=== PATIENT | male | born 1950 | race Caucasian/White ===

== ENCOUNTER 2016-02-24 11:20 | Inpatient (IN) | payer MEDICAID ==
[2016-02-24 11:58] LABS: % BASOPHILS 0.9 % (0.0-2.0); % EOSINOPHILS 2.4 % (0.0-5.0); % LYMPHOCYTES 37.8 % (20.0-50.0); % MONOCYTES 12.4 % (2.0-10.0); % NEUTROPHILS 46.5 % (40.0-80.0); HEMATOCRIT 35.4 % (39.0-49.0); MEAN CELL VOLUME 97.4 fl (80-99); MEAN CORPUSCULAR HEMOGLOBIN 33.1 pg (26.0-30.0); MEAN CORPUSCULAR HGB CONC 33.9 pg (28.0-36.0); MEAN PLATELET VOLUME 8.4 fl; NEUTROPHILE ABSOLUTE 3.1 Th/cmm (1.8-8.0); PLATELET COUNT 284 Th/cmm (150-400); RED BLOOD COUNT 3.63 Mil/cmm (4.30-5.70); RED CELL DISTRIBUTION WIDTH 13.8 % (11.5-20.0); WHITE BLOOD COUNT 6.8 Th/cmm (4.8-10.8)
[2016-02-24 12:08] LABS: INR 1.14 (0.5-1.4); PROTHROMBIN TIME (TEST) 11.4 SECONDS (9.5-11.5)
[2016-02-24 12:13] LABS: ALKALINE PHOSPHATASE 204 U/L (34-104); ANION GAP 5.9 (7.0-16.0); BILIRUBIN,TOTAL 0.3 mg/dL (0.3-1.0); BUN - UREA NITROGEN 26 mg/dL (7-25); BUN/CREATININE RATIO 32.5; CALCIUM SERUM 10.6 mg/dL (8.6-10.3); CARBON DIOXIDE 30.7 mEq/L (21.0-31.0); CHLORIDE 108 mEq/L (98-107); CREATININE - SERUM 0.8 mg/dL (0.7-1.3); GLUCOSE 99 mg/dL (70-105); POTASSIUM SERUM 4.6 mEq/L (3.5-5.1); SGOT 41 U/L (13-39); SGPT/ALT 25 U/L (7-52); SODIUM SERUM 140 mEq/L (136-145)
--- NOTE | 2016-02-24 12:15 | Diagnostic Imaging Report ---
Portable chest x-ray HISTORY: Cough The heart size is normal. A faint linear density is noted near the left costophrenic angle unchanged from 09/06/2015 consistent with scarring. No acute processes are seen. No hilar or mediastinal abnormalities. IMPRESSION: 1. No acute abnormalities 2. Cardiomegaly
--- NOTE | 2016-02-24 12:36 | ED Physician Chart ---
Chief Complaint/HPI - Patient Information Date Seen:: 02/24/16 Time Seen:: 11:40 Chief Complaint:: G-TUBE NEEDS REPLACEMENT History of Present Illness:: THIS IS A CHRONICALLY ILL MALE PATIENT SENT [facility] BECAUSE OF G- TUBE DISPLACEMENT. HE IS CONFUSED AND DEMENTED ACTING OUT AT TIMES. HE IS HAS HYPOTHYROIDISM, COPD, SEIZURE DISORDER AND MENTAL DISEASE. Allergies:: Allergies Allergy/AdvReac Type Severity Reaction Status Date / Time chlorpromazine Allergy Verified 02/24/16 11:45 [From Thorazine] Vitals:: Vital Signs - 8 hr 02/24/16 11:20 Temp 97.7 F HR 104 RR 18 BP 111/79 O2 Sat % 94 Historian:: Medical Records Review:: Nurse's Note Reviewed, Transfer documents Reviewed Review of Systems - Review of Systems General/Constitutional: No fever, No chills, No weight loss, Weakness (THE PATIENT IS UNABLE TO GIVE A REVIEW OF SYSTEMS.), No diaphoresis, No edema, No loss of appetite Skin: No skin lesions, No rash, No bruising Head: No headache, No light-headedness Eyes: No loss of vision, No pain, No diplopia ENT: No earache, No nasal drainage, No sore throat, No tinnitus Neck: No neck pain, No swelling, No thyromegaly, No stiffness, No mass noted Cardio Vascular: No chest pain, No palpitations, No PND, No orthopnea, No edema Pulmonary: No SOB, No cough, No sputum, No wheezing GI: No nausea, No vomiting, No diarrhea, No pain, No melena, No hematochezia, No constipation, No hematemesis G/U: No dysuria, No frequency, No hematuria Musculoskeletal: No bone or joint pain, No back pain, No muscle pain Endocrine: No polyuria, No polydipsia Psychiatric: No prior psych history, No depression, No anxiety, No suicidal ideation Hematopoietic: No bruising, No lymphadenopathy Allergic/Immuno: No urticaria, No angioedema Neurological: No syncope, No focal symptoms, No weakness, No paresthesia, No headache, No seizure, No dizziness, No confusion, No vertigo Past Medical History - Past Medical History Obtainable: Yes Past Medical History: HTN, Asthma/COPD, CVA/TIA, Seizures, Thyroid disorder, Dementia Family History: None Social History: Non Smoker, No Alcohol, No Drug Use Surgical History: None Psychiatricy History: Dementia Medication: Reviewed Family Medical History - Family Member Mother History Unknown: Yes Father History Unknown: Yes Ethnicity: Unknown Living Status: Unknown Physical Exam - Physical Examination General/Constitutional: Awake, Well-developed, well-nourished, Alert, No distress, GCS 15, Non-toxic appearing, Ambulatory Head: Atraumatic Eyes: Lids, conjuctiva normal, PERRL, EOMI Skin: Nl inspection, No rash, No skin lesions, No ecchymosis, Well hydrated, No lymphadenopathy ENMT: External ears, nose nl, Nasal exam nl, Lips, teeth, gums nl Neck: Nontender, Full ROM w/o pain, No JVD, No nuchal rigidity, No bruit, No mass, No stridor Respiratory: Nl effort/Exclusion, Clear to Auscultation, No Wheeze/Rhonchi/Rales Cardio Vascular: RRR, No murmur, gallop, rubs, NL S1 S2 GI: No tenderness/rebounding/guarding, No organomegaly, No hernia, Normal BS's, Nondistended, No mass/bruits, No McBurney tenderness Other GI comments:: GK-TUBE IS OUT AND THE ABDOMEN IS SLIGHTLY DISTENDED : No CVA tenderness Extremities: No tenderness or effusion, Full ROM, normal strength in all extremities (THERE IS SIGNIFICANT MUSCLE WASTING OF ALL FOUR EXTREMITIES.), No edema, Normal digits & nails Neuro/Psych: DTR's symmetric, Normal sensory exam, Normal motor strength, Judgement/insight normal (POOR JUDGEMENT AND INSIGHT), Mood normal, Normal gait , No focal deficits Misc: normal gait, Normal back, No paraspinal tenderness Labs/Radiology/EKG Results - Lab Results Results: Laboratory Tests 02/24/16 02/24/16 02/24/16 11:49 11:49 11:49 WBC 6.8 RBC 3.63 L Hgb 12.0 L Hct 35.4 L MCV 97.4 MCH 33.1 H MCHC Differential 33.9 RDW 13.8 Plt Count 284 MPV 8.4 Neutrophils % 46.5 Lymphocytes % 37.8 Monocytes % 12.4 H Eosinophils % 2.4 Basophils % 0.9 PT 11.4 INR 1.14 PTT (Actin FS) Sodium 140 Potassium 4.6 Chloride 108 H Carbon Dioxide 30.7 Anion Gap 5.9 L BUN 26 H Creatinine 0.8 Est GFR ( Amer) > 60.0 Est GFR (Non-Af Amer) > 60.0 BUN/Creatinine Ratio 32.5 Glucose 99 Calcium 10.6 H Total Bilirubin 0.3 AST 41 H ALT 25 Alkaline Phosphatase 204 H Troponin I Total Protein 8.2 Albumin 4.0 L Globulin 4.2 Albumin/Globulin Ratio 1.0 02/24/16 02/24/16 11:49 11:49 WBC RBC Hgb Hct MCV MCH MCHC Differential RDW Plt Count MPV Neutrophils % Lymphocytes % Monocytes % Eosinophils % Basophils % PT INR PTT (Actin FS) 26.7 Sodium Potassium Chloride Carbon Dioxide Anion Gap BUN Creatinine Est GFR ( Amer) Est GFR (Non-Af Amer) BUN/Creatinine Ratio Glucose Calcium Total Bilirubin AST ALT Alkaline Phosphatase Troponin I 0.01 Total Protein Albumin Globulin Albumin/Globulin Ratio ED Septic Shock - . Is Septic Shock (SBP<90, OR Lactate>4 mmol\L) present?: No - <6hrs of presentation: Vital Signs: Vital Signs - 8 hr 02/24/16 11:20 Temp 97.7 F HR 104 RR 18 BP 111/79 O2 Sat % 94 Reassessment (Disposition) - Reassessment Reassessment Condition:: Unchanged - Diagnosis Diagnosis:: G-TUBE DISPLACEMENT ANEMIA SEIZURES - Patient Disposition Discharge/Transfer:: Acute Care w/in this hosp Admitting Medical Physician:: Don Jimenes Condition at Disposition:: Unchanged
[2016-02-24] MEDS ORDERED: Albuterol Nebulizer 2.5mg/3mL HHN PRN (14:35)
[2016-02-24] MEDS ORDERED: LEVALBUTEROL HCL IH SCH (14:45)
[2016-02-24] MEDS ORDERED: Albuterol Nebulizer 2.5mg/3mL HHN SCH (18:30)
--- NOTE | 2016-02-24 21:54 | History & Physical ---
CHIEF COMPLAINT: Malfunctioning G-tube, not able to get his medication, dehydrated. HISTORY OF PRESENT ILLNESS: This is a 66-year-old male with history of diabetes, hypertension, schizoaffective disorder and dementia, who was admitted and treated in the Emergency Room for further management. The patient ____. PAST MEDICAL HISTORY: As mentioned in the history of present illness. PAST SURGICAL HISTORY: G-tube. ALLERGIES: CHLORPROMAZINE. MEDICATIONS: Depakote, Tylenol, vitamin C, gemfibrozil, Synthroid, lorazepam and Dilantin. FAMILY HISTORY: Noncontributory. SOCIAL HISTORY: The patient lives in group home. The patient is requiring 24-hour total care. REVIEW OF SYSTEMS: This is limited secondary to the patient's current mental status. We will try to obtain more detailed review of systems at a later date by talking to family members. Lucia Manley is the durable power of transportation superintendent, # [phone]. We will also try to get information from the nursing staff at the [facility], # [phone]. PHYSICAL EXAMINATION: VITAL SIGNS: Blood pressure 111/79, respirations 18, pulse 104, temperature ____. GENERAL: Elderly male, appears chronically ill. NECK: Supple. LUNGS: Good breath sounds, few rhonchi. HEART: Regular rate and rhythm without appreciable murmurs. ABDOMEN: Soft and nontender. EXTREMITIES: Positive excoriation, contractures and atrophy. NEUROLOGIC: Limited. LABORATORY DATA: WBC 6.8, hemoglobin 12.0, platelets 284. Sodium 140, potassium 4.6, BUN 26, creatinine 0.8, blood sugar is 99. Calcium ____. ASSESSMENT AND PLAN: Malfunctioning gastrostomy tube, dehydration, anemia, schizoaffective disorder, diabetes, hypertension, ____, chronic obstructive pulmonary disease, hypothyroidism. We will continue the patient on IV hydration, refer the patient to GI. I will put the patient on aspiration precaution. We will adjust the patient's medication. We will continue to monitor the patient closely. JOB# [id number]
[2016-02-24] MEDS: D5-0.45NS 1,000 ML IV SCH (23:41)
[2016-02-25 07:29] LABS: HEMATOCRIT 35.1 % (39.0-49.0); HEMOGLOBIN 11.8 gm/dL (13.2-17.3); MEAN CELL VOLUME 96.1 fl (80-99); MEAN CORPUSCULAR HEMOGLOBIN 32.3 pg (26.0-30.0); MEAN CORPUSCULAR HGB CONC 33.6 pg (28.0-36.0); MEAN PLATELET VOLUME 8.6 fl; PLATELET COUNT 282 Th/cmm (150-400); RED BLOOD COUNT 3.65 Mil/cmm (4.30-5.70); WHITE BLOOD COUNT 6.9 Th/cmm (4.8-10.8)
[2016-02-25 08:36] LABS: NEUTROPHILS 47 % (40-80); TOTAL CELLS COUNTED 100
[2016-02-25 08:37] LABS: PLATELET ESTIMATE ADEQUATE (NORMAL); PLATELET MORPHOLOGY NORMAL (NORMAL)
[2016-02-25] MEDS: Levothyroxine 0.15 Mg Tab GT SCH (09:51)
[2016-02-25] MEDS: Multivitamin 5 mL UDC GT SCH (09:51)
[2016-02-25] MEDS: Pantoprazole 40 mg/Packet GT SCH (09:51)
--- NOTE | 2016-02-25 12:56 | Internal Medicine Prog Note ---
Internal Medicine Subjective - Subjective Service Date: 02/25/16 Patient seen and examined:: with staff Patient is:: awake Patient Complaints of:: congestion Per staff patient is:: no adverse event Internal Medicine Objective - Results Result Diagrams: 02/25/16 06:36 02/24/16 11:49 Recent Labs: Laboratory Last Values WBC 6.9 Th/cmm (4.8-10.8) 02/25/16 06:36 RBC 3.65 Mil/cmm (4.30-5.70) L 02/25/16 06:36 Hgb 11.8 gm/dL (13.2-17.3) L 02/25/16 06:36 Hct 35.1 % (39.0-49.0) L 02/25/16 06:36 MCV 96.1 fl (80-99) 02/25/16 06:36 MCH 32.3 pg (26.0-30.0) H 02/25/16 06:36 MCHC Differential 33.6 pg (28.0-36.0) 02/25/16 06:36 RDW 14.0 % (11.5-20.0) 02/25/16 06:36 Plt Count 282 Th/cmm (150-400) 02/25/16 06:36 MPV 8.6 fl 02/25/16 06:36 Neutrophils % 46.5 % (40.0-80.0) 02/24/16 11:49 Lymphocytes % 37.8 % (20.0-50.0) 02/24/16 11:49 Monocytes % 12.4 % (2.0-10.0) H 02/24/16 11:49 Eosinophils % 2.4 % (0.0-5.0) 02/24/16 11:49 Basophils % 0.9 % (0.0-2.0) 02/24/16 11:49 Neutrophils (Manual) 47 % (40-80) 02/25/16 06:36 Lymphocytes 39 % (20-50) 02/25/16 06:36 Monocytes 11 % (2-10) H 02/25/16 06:36 Eosinophils Not Reportable 02/25/16 06:36 Atypical Lymphocytes 3 % 02/25/16 06:36 Platelet Estimate ADEQUATE (NORMAL) 02/25/16 06:36 Platelet Morphology NORMAL (NORMAL) 02/25/16 06:36 RBC Morph Micro Appear NORMAL (NORMAL) 02/25/16 06:36 PT 11.4 SECONDS (9.5-11.5) 02/24/16 11:49 INR 1.14 (0.5-1.4) 02/24/16 11:49 PTT (Actin FS) 26.7 SECONDS (26.0-38.0) 02/24/16 11:49 Sodium 140 mEq/L (136-145) 02/24/16 11:49 Potassium 4.6 mEq/L (3.5-5.1) 02/24/16 11:49 Chloride 108 mEq/L (98-107) H 02/24/16 11:49 Carbon Dioxide 30.7 mEq/L (21.0-31.0) 02/24/16 11:49 Anion Gap 5.9 (7.0-16.0) L 02/24/16 11:49 BUN 26 mg/dL (7-25) H 02/24/16 11:49 Creatinine 0.8 mg/dL (0.7-1.3) 02/24/16 11:49 Est GFR ( Amer) > 60.0 ml/min 02/24/16 11:49 Est GFR (Non-Af Amer) > 60.0 ml/min 02/24/16 11:49 BUN/Creatinine Ratio 32.5 02/24/16 11:49 Glucose 99 mg/dL (70-105) 02/24/16 11:49 Calcium 10.6 mg/dL (8.6-10.3) H 02/24/16 11:49 Total Bilirubin 0.3 mg/dL (0.3-1.0) 02/24/16 11:49 AST 41 U/L (13-39) H 02/24/16 11:49 ALT 25 U/L (7-52) 02/24/16 11:49 Alkaline Phosphatase 204 U/L (34-104) H 02/24/16 11:49 Ammonia 58 umol/L (16-53) H 02/25/16 06:36 Troponin I 0.01 ng/mL (0.01-0.05) 02/24/16 11:49 Total Protein 8.2 gm/dL (6.0-8.3) 02/24/16 11:49 Albumin 4.0 gm/dL (4.2-5.5) L 02/24/16 11:49 Globulin 4.2 gm/dL 02/24/16 11:49 Albumin/Globulin Ratio 1.0 (1.0-1.8) 02/24/16 11:49 - Physical Exam Vitals and I&O: Vital Signs Temp 98.4 F 02/25/16 08:00 Pulse 84 02/25/16 08:00 Resp 18 02/25/16 08:00 BP 130/90 02/25/16 08:00 Pulse Ox 94 02/25/16 08:00 Intake & Output 02/24/16 02/25/16 02/25/16 18:59 06:59 18:59 Intake Total 0 Balance 0 Intake: Oral 0 Tube Feeding 0 Other: Stool Characteristics Soft Active Medications: Current Medications Acetaminophen (Tylenol 650mg/20.3ml Suspension) 650 mg GT Q4HR PRN PRN Reason: Pain Or Fever >100.4 Stop: 04/24/16 14:34 Albuterol Sulfate (Albuterol 2.5mg/3ml Neb Ud) 2.5 mg HHN Q2H PRN PRN Reason: sob Stop: 04/24/16 14:34 Albuterol Sulfate (Albuterol 2.5mg/3ml Neb Ud) 2.5 mg HHN Q12H CARLY Stop: 04/24/16 18:29 Ascorbic Acid (Vitamin C) 500 mg GT DAILY [facility] Stop: 04/25/16 08:59 Last Admin: 02/25/16 09:51 Dose: Not Given Gemfibrozil (Lopid) 600 mg GT BID CARLY Stop: 04/24/16 16:59 Last Admin: 02/25/16 09:51 Dose: Not Given Dextrose/Sodium Chloride (D5-0.45ns) 1,000 mls @ 100 mls/hr IV .Q10H CARLY Stop: 04/24/16 14:44 Last Admin: 02/24/16 23:41 Dose: Not Given Levothyroxine Sodium (Synthroid) 0.15 mg GT DAILY [facility] Stop: 04/25/16 08:59 Last Admin: 02/25/16 09:51 Dose: Not Given Multivitamins/Vitamin C (Theragran) 5 ml GT DAILY [facility] Stop: 04/25/16 08:59 Last Admin: 02/25/16 09:51 Dose: Not Given Ondansetron HCl (Zofran) 4 mg IVP Q8H PRN PRN Reason: Nausea / Vomiting Stop: 04/24/16 14:34 Pantoprazole Sodium (Protonix) 40 mg GT DAILY [facility] Stop: 04/25/16 08:59 Last Admin: 02/25/16 09:51 Dose: Not Given Phenytoin (Dilantin) 300 mg GT Q12H [facility] Stop: 04/24/16 15:59 Last Admin: 02/25/16 05:27 Dose: Not Given Valproate Sodium (Depakene) 300 mg GT TID [facility] Stop: 04/24/16 20:59 Last Admin: 02/25/16 09:51 Dose: Not Given General: congested, alert HEENT: NC/AT, PERRLA Neck: Supple Lungs: ronchi Cardiovascular: RRR, Normal S1, Normal S2, without murmur Abdomen: soft non-tender - Procedures Procedures: Procedures Procedure Code Date CHANGE FEEDING DEVICE IN UP INTEST TRACT, CORRECTION [place]ICER [place] APPROACH [id number] 01/16/15 CHANGE GASTROSTOMY TUBE 90764 01/16/15 IMMUNIZATION ADMIN 02034 06/07/12 INSERT EMERGENCY AIRWAY 29424 08/31/15 INSERT INDWELLING CATH 57.94 07/07/10 INSERT PICC CATH 49737 08/02/15 INSERTION OF ENDOTRACHEAL AIRWAY INTO TRACHEA, VIA OPENING [id number] 08/31/15 INSERTION OF INFUSION DEV INTO R FEMOR VEIN, PERC APPROACH [id number] 08/02/15 INSERTION OF INFUSION DEV INTO SUP VENA CAVA, PERC APPROACH [id number] 08/31/15 OTHER ENDOSCOPY OF SM INTEST 45.13 07/07/10 REPLACE GASTROSTOMY TUBE 97.02 10/19/14 RESPIRATORY VENTILATION, 24-96 CONSECUTIVE HOURS [id number] 05/03/15 RESPIRATORY VENTILATION, GREATER THAN 96 CONSECUTIVE HOURS [id number] 08/31/15 ULTRASONOGRAPHY OF SUPERIOR VENA CAVA, GUIDANCE [id number] 08/31/15 VACCINATION NEC 99.55 02/26/13 VACCINE TOXOID 66037 06/07/12 VENOUS CATHETERIZATION NEC 38.93 04/21/14 VENT MGMT INPAT INIT DAY 48132 08/31/15 VENT MGMT INPAT SUBQ DAY 28302 07/16/16 Internal Medicine Assmt/Plan - Assessment Assessment: MALFUNCTIONING GT DEHYDRATION ANEMIA SCHIZOAFFECTIVE HTN COPD - Plan Plan: IVF FOR HYDRATION MIDLINE TO BE PLACED PEG TO BE PLACED MONITOR H/H
[2016-02-25] MEDS: D5-0.45NS 1,000 ML IV SCH (16:49)
[2016-02-25] MEDS ORDERED: Diatrizoate Meglumine/Diatri 30 mL Sol PO ONE (17:09)
--- NOTE | 2016-02-25 19:03 | Operative Report ---
GASTROINTESTINAL PROCEDURE NAME OF PROCEDURE: G-tube change. REFERRING PHYSICIAN: Dr. Jimenes. REASON FOR PROCEDURE: Malfunctioning G-tube, dysphagia. PREOPERATIVE DIAGNOSIS: Malfunctioning G-tube, dysphagia. POSTOPERATIVE DIAGNOSES: 20-Georgian gastrostomy tube placed. DESCRIPTION OF PROCEDURE: The patient was placed on his back. The old G-tube was identified. It was being opened by a Mejia tube. The Mejia tube was removed because the internal balloon was non-inflated. This was simply pulled out. A new 20-Georgian gastrostomy tube was then lubricated. Then, inserted through the gastrocutaneous fistula. The internal balloon was inflated with 15 mL of sterile saline. Outer flange was secured in position. Procedure was then completed. COMPLICATIONS: None. FINDINGS: New 20-Georgian gastrostomy tube placed in the stomach. RECOMMENDATIONS: 1. Obtain a KUB with Gastrografin to confirm placement. 2. Use G-tube if it is in the stomach. 3. Check residual every 6 hours and hold if greater than 100 mL. 4. Abdominal binder to protect the G-tube. Thank you for allowing me to participate. Please call me if you have any questions. JOB# [id number]
--- NOTE | 2016-02-25 21:40 | Admit Criteria Form ---
Admit Criteria Forms - Admit Criteria Diagnosis: DEHYDRATION Clinical Indications for Admission to Inpatient Care (Place 'X' for any and all applicable criteria): Admission is indicated for ANY ONE of the following (1)(2)(3)(4)(5): [ X]I. Inpatient admission required rather than observation care (see Dehydration: Observation Care guideline as appropriate) because of ANY ONE of the following: [ X]a) Vomiting that is severe or persistent [ ]b) Severe electrolyte abnormalities requiring inpatient care [ ]c) Hemodynamic instability [ ]d) IV fluid to replace significant ongoing losses (greater than 3 L/m2 per day (10) (11) [ ]e) Parenteral nutrition regimen that must be implemented on inpatient basis [X ]f) Other condition,treatment or monitoring requiring inpatient admission [ ]II. Serious cause for dehydration requiring acute hospitalization (eg, bowel obstruction, increased intracranial pressure, infectious cause) Extended stay beyond goal length of stay may be needed for(1)(3 )(4)(17): [ ]a) Chronic severe dehydration [ ]b) Persistent vital sign changes, severe electrolyte imbalance, or diagnosed cause of dehydration that requires continued hospitalization (eg, bowel obstruction, increased intracranial pressure) [ ]c) Older patients (65 years or older) [ ]d) Severe comorbid illness (eg, renal failure, heart failure, poorly controlled diabetes) The original [employer] content created by [employer] has been revised. The portions of the content which have been revised are identified through the use of italic text or in bold, and [facility] has neither reviewed nor approved the modified material. All other unmodified content is copyright [employer]. Please see references footnoted in the original [employer] edition 2016
--- NOTE | 2016-02-26 03:56 | Consultation ---
INPATIENT GASTROINTESTINAL CONSULTATION REFERRING PHYSICIAN: Dr. Jimenes. REASON FOR CONSULTATION: Malfunctioning G-tube that was removed by the patient. HISTORY OF PRESENT ILLNESS: This is a 66-year-old male with diabetes, hypertension, schizoaffective disorder, dementia, came to the hospital from an outside facility because his G-tube had been removed. There was a Mejia tube in place. He wanted a formal tube before using it for medication. The patient again is a poor historian. PAST MEDICAL HISTORY: Diabetes, hypertension, schizoaffective disorder, and dementia. PAST SURGICAL HISTORY: G-tube placement. FAMILY HISTORY: Noncontributory. SOCIAL HISTORY: Resident of [facility]. ALLERGIES: CHLORPROMAZINE. CURRENT MEDICATIONS: Tylenol, albuterol, vitamin C, Lopid, Synthroid, Zofran, Protonix, Dilantin, and Depakene. REVIEW OF SYSTEMS: Unobtainable. PHYSICAL EXAMINATION: VITAL SIGNS: Temperature 98.4, breathing 18, pulse 84, blood pressure 130/90, and satting 94%. GENERAL: In no apparent distress. EYES: Anicteric, normal conjunctivae. HEENT: Normocephalic and atraumatic. Moist mucous membranes. NECK: Soft and supple. CHEST: Clear, normal effort. CARDIOVASCULAR: Regular rate and rhythm. ABDOMEN: Soft, nontender, and nondistended. SKIN: Warm and dry. EXTREMITIES: Reveal no cyanosis. PSYCHOLOGIC: Alert and oriented x 3. LABORATORY DATA: Show white count of 6.9, hemoglobin 11.8, and platelets 282,000. IMPRESSION: This is a 66-year-old male with malfunctioning G-tube and dysphagia. The patient apparently pulled out his G-tube. We are asked to see the patient with a request to replace his G-tube. The patient again is a poor historian. PLAN: G-tube to be changed at bedside. We will need imaging studies afterwards to confirm placement. Thank you for allowing me to participate. Please call me if you have any questions. JOB# [id number]
[2016-02-26 07:44] LABS: HEMATOCRIT 33.7 % (39.0-49.0); HEMOGLOBIN 11.6 gm/dL (13.2-17.3); MEAN CELL VOLUME 95.6 fl (80-99); MEAN CORPUSCULAR HGB CONC 34.5 pg (28.0-36.0); MEAN PLATELET VOLUME 8.8 fl; PLATELET COUNT 298 Th/cmm (150-400); RED BLOOD COUNT 3.52 Mil/cmm (4.30-5.70); RED CELL DISTRIBUTION WIDTH 13.9 % (11.5-20.0); WHITE BLOOD COUNT 5.7 Th/cmm (4.8-10.8)
[2016-02-26 08:45] LABS: EOSINOPHIL 1 % (0-5); NEUTROPHILS 39 % (40-80); TOTAL CELLS COUNTED 100
[2016-02-26 08:46] LABS: BUN - UREA NITROGEN 31 mg/dL (7-25); BUN/CREATININE RATIO 38.8; CARBON DIOXIDE 29.1 mEq/L (21.0-31.0); CHLORIDE 108 mEq/L (98-107); CREATININE - SERUM 0.8 mg/dL (0.7-1.3); GLUCOSE 144 mg/dL (70-105); PLATELET ESTIMATE ADEQUATE (NORMAL); PLATELET MORPHOLOGY NORMAL (NORMAL); POTASSIUM SERUM 4.1 mEq/L (3.5-5.1); SODIUM SERUM 141 mEq/L (136-145)
[2016-02-26] MEDS ORDERED: Lactulose 10 Gm/15 mL 30mL UDC PO SCH (09:00)
[2016-02-26] MEDS: Multivitamin 5 mL UDC GT SCH (09:09)
[2016-02-26] MEDS: Levothyroxine 0.15 Mg Tab GT SCH (09:10)
[2016-02-26] MEDS: Pantoprazole 40 mg/Packet GT SCH (09:11)
[2016-02-26] MEDS ORDERED: Albuterol Nebulizer 2.5mg/3mL HHN SCH (10:00)
--- NOTE | 2016-02-26 10:28 | Diagnostic Imaging Report ---
Upper GI limited History: G-tube placement Comparison: None Findings: Security Operations Manager view demonstrates copious stool throughout the colon. A percutaneous feeding tube is noted. Follow-up images demonstrate contrast opacification of the stomach and proximal small bowel. IMPRESSION: Intraluminal confirmation of patient's percutaneous gastric feeding tube. Copious amount of stool noted.
[2016-02-26 12:13] LABS: FOLIC ACID >20.0 ng/mL (>3.0)
--- NOTE | 2016-02-26 12:25 | Internal Medicine Prog Note ---
Internal Medicine Subjective - Subjective Service Date: 02/26/16 (s/p peg placement ) Patient seen and examined:: with staff Patient is:: awake Per staff patient is:: no adverse event Internal Medicine Objective - Results Result Diagrams: 02/26/16 06:18 02/26/16 06:18 Recent Labs: Laboratory Last Values WBC 5.7 Th/cmm (4.8-10.8) 02/26/16 06:18 RBC 3.52 Mil/cmm (4.30-5.70) L 02/26/16 06:18 Hgb 11.6 gm/dL (13.2-17.3) L 02/26/16 06:18 Hct 33.7 % (39.0-49.0) L 02/26/16 06:18 MCV 95.6 fl (80-99) 02/26/16 06:18 MCH 33.0 pg (26.0-30.0) H 02/26/16 06:18 MCHC Differential 34.5 pg (28.0-36.0) 02/26/16 06:18 RDW 13.9 % (11.5-20.0) 02/26/16 06:18 Plt Count 298 Th/cmm (150-400) 02/26/16 06:18 MPV 8.8 fl 02/26/16 06:18 Neutrophils % 46.5 % (40.0-80.0) 02/24/16 11:49 Lymphocytes % 37.8 % (20.0-50.0) 02/24/16 11:49 Monocytes % 12.4 % (2.0-10.0) H 02/24/16 11:49 Eosinophils % 2.4 % (0.0-5.0) 02/24/16 11:49 Basophils % 0.9 % (0.0-2.0) 02/24/16 11:49 Neutrophils (Manual) 39 % (40-80) L 02/26/16 06:18 Lymphocytes 50 % (20-50) 02/26/16 06:18 Monocytes 10 % (2-10) 02/26/16 06:18 Eosinophils 1 % (0-5) 02/26/16 06:18 Atypical Lymphocytes 3 % 02/25/16 06:36 Platelet Estimate ADEQUATE (NORMAL) 02/26/16 06:18 Platelet Morphology NORMAL (NORMAL) 02/26/16 06:18 RBC Morph Micro Appear NORMAL (NORMAL) 02/26/16 06:18 PT 11.4 SECONDS (9.5-11.5) 02/24/16 11:49 INR 1.14 (0.5-1.4) 02/24/16 11:49 PTT (Actin FS) 26.7 SECONDS (26.0-38.0) 02/24/16 11:49 Sodium 141 mEq/L (136-145) 02/26/16 06:18 Potassium 4.1 mEq/L (3.5-5.1) 02/26/16 06:18 Chloride 108 mEq/L (98-107) H 02/26/16 06:18 Carbon Dioxide 29.1 mEq/L (21.0-31.0) 02/26/16 06:18 Anion Gap 8.0 (7.0-16.0) 02/26/16 06:18 BUN 31 mg/dL (7-25) H 02/26/16 06:18 Creatinine 0.8 mg/dL (0.7-1.3) 02/26/16 06:18 Est GFR ( Amer) > 60.0 ml/min 02/26/16 06:18 Est GFR (Non-Af Amer) > 60.0 ml/min 02/26/16 06:18 BUN/Creatinine Ratio 38.8 02/26/16 06:18 Glucose 144 mg/dL (70-105) H 02/26/16 06:18 Calcium 10.0 mg/dL (8.6-10.3) 02/26/16 06:18 Total Bilirubin 0.3 mg/dL (0.3-1.0) 02/24/16 11:49 AST 41 U/L (13-39) H 02/24/16 11:49 ALT 25 U/L (7-52) 02/24/16 11:49 Alkaline Phosphatase 204 U/L (34-104) H 02/24/16 11:49 Ammonia 58 umol/L (16-53) H 02/25/16 06:36 Troponin I 0.01 ng/mL (0.01-0.05) 02/24/16 11:49 Total Protein 8.2 gm/dL (6.0-8.3) 02/24/16 11:49 Albumin 4.0 gm/dL (4.2-5.5) L 02/24/16 11:49 Globulin 4.2 gm/dL 02/24/16 11:49 Albumin/Globulin Ratio 1.0 (1.0-1.8) 02/24/16 11:49 Vitamin B12 492 pg/mL (211-946) 02/25/16 06:36 Folic Acid >20.0 ng/mL (>3.0) 02/25/16 06:36 - Physical Exam Vitals and I&O: Vital Signs Temp 97.6 F 02/26/16 00:00 Pulse 96 02/26/16 00:00 Resp 17 02/26/16 00:00 BP 108/78 02/26/16 00:00 Pulse Ox 95 02/26/16 00:00 Intake & Output 02/25/16 02/26/16 02/26/16 18:59 06:59 18:59 Intake Total 800 Output Total 200 Balance -200 800 Intake: Tube Feeding 800 Output: Urine 200 Other: # Voids 2 3 Stool Characteristics Soft Active Medications: Current Medications Acetaminophen (Tylenol 650mg/20.3ml Suspension) 650 mg GT Q4HR PRN PRN Reason: Pain Or Fever >100.4 Stop: 04/24/16 14:34 Albuterol Sulfate (Albuterol 2.5mg/3ml Neb Ud) 2.5 mg HHN Q2H PRN PRN Reason: sob Stop: 04/24/16 14:34 Albuterol Sulfate (Albuterol 2.5mg/3ml Neb Ud) 2.5 mg HHN Q12HRT [facility] Stop: 04/26/16 09:59 Ascorbic Acid (Vitamin C) 500 mg GT DAILY [facility] Stop: 04/25/16 08:59 Last Admin: 02/26/16 09:10 Dose: 500 mg Gemfibrozil (Lopid) 600 mg GT BID [facility] Stop: 04/24/16 16:59 Last Admin: 02/26/16 09:11 Dose: 600 mg Dextrose/Sodium Chloride (D5-0.45ns) 1,000 mls @ 100 mls/hr IV .Q10H [facility] Stop: 04/24/16 14:44 Last Admin: 02/25/16 16:49 Dose: 100 mls/hr Lactulose (Cephulac) 30 gm PO DAILY [facility] Stop: 04/26/16 08:59 Last Admin: 02/26/16 09:09 Dose: 30 gm Levothyroxine Sodium (Synthroid) 0.15 mg GT DAILY [facility] Stop: 04/25/16 08:59 Last Admin: 02/26/16 09:10 Dose: 0.15 mg Multivitamins/Vitamin C (Theragran) 5 ml GT DAILY [facility] Stop: 04/25/16 08:59 Last Admin: 02/26/16 09:09 Dose: 5 ml Ondansetron HCl (Zofran) 4 mg IVP Q8H PRN PRN Reason: Nausea / Vomiting Stop: 04/24/16 14:34 Pantoprazole Sodium (Protonix) 40 mg GT DAILY [facility] Stop: 04/25/16 08:59 Last Admin: 02/26/16 09:11 Dose: 40 mg Phenytoin (Dilantin) 300 mg GT Q12H [facility] Stop: 04/24/16 15:59 Last Admin: 02/26/16 03:46 Dose: 300 mg Valproate Sodium (Depakene) 300 mg GT TID [facility] Stop: 04/24/16 20:59 Last Admin: 02/26/16 09:07 Dose: 300 mg General: weak, alert HEENT: NC/AT Neck: Supple Lungs: CTAB Cardiovascular: RRR, Normal S1, Normal S2, without murmur Abdomen: soft non-tender, non-distended, positive bowel sound Neurological: no change - Procedures Procedures: Procedures Procedure Code Date CHANGE FEEDING DEVICE IN UP INTEST TRACT, TEAM LEADER APPROACH [id number] 01/16/15 CHANGE GASTROSTOMY TUBE 96614 01/16/15 IMMUNIZATION ADMIN 30905 06/07/12 INSERT EMERGENCY AIRWAY 50752 08/31/15 INSERT INDWELLING CATH 57.94 07/07/10 INSERT PICC CATH 88161 08/02/15 INSERTION OF ENDOTRACHEAL AIRWAY INTO TRACHEA, VIA OPENING [id number] 08/31/15 INSERTION OF INFUSION DEV INTO R FEMOR VEIN, PERC APPROACH [id number] 08/02/15 INSERTION OF INFUSION DEV INTO SUP VENA CAVA, PERC APPROACH [id number] 08/31/15 OTHER ENDOSCOPY OF SM INTEST 45.13 07/07/10 REPLACE GASTROSTOMY TUBE 97.02 10/19/14 RESPIRATORY VENTILATION, 24-96 CONSECUTIVE HOURS [id number] 05/03/15 RESPIRATORY VENTILATION, GREATER THAN 96 CONSECUTIVE HOURS [id number] 08/31/15 ULTRASONOGRAPHY OF SUPERIOR VENA CAVA, GUIDANCE [id number] 08/31/15 VACCINATION NEC 99.55 02/26/13 VACCINE TOXOID 39411 06/07/12 VENOUS CATHETERIZATION NEC 38.93 04/21/14 VENT MGMT INPAT INIT DAY 08/31/15 VENT MGMT INPAT SUBQ DAY 08/31/15 Internal Medicine Assmt/Plan - Assessment Assessment: MALFUNCTIONING GT DEHYDRATION ANEMIA SCHIZOAFFECTIVE HTN COPD - Plan Plan: IVF FOR HYDRATION MONITOR H/H cbc/bmp in am
[2016-02-26] MEDS ORDERED: Magnesium Citrate 1.75 GM/300 mL Bottle GT ONE (12:33)
--- NOTE | 2016-04-01 01:53 | Discharge Summary ---
FINAL DIAGNOSES: Malfunctioning G-tube, dehydration, anemia, schizoaffective, diabetes, hypertension, chronic obstructive pulmonary disease, hypothyroidism. HISTORY OF PRESENT ILLNESS: A 66-year-old male with history of diabetes, hypertension, schizoaffective disorder, dementia, admitted and treated in the ER for further management. PHYSICAL EXAMINATION: VITAL SIGNS: Stable. HEENT: Head normocephalic, atraumatic. NECK: Supple. No mass. LUNGS: Clear. CARDIOVASCULAR: Regular rate and rhythm. ABDOMEN: Soft, nontender, nondistended. HOSPITAL COURSE: During the hospital stay, the patient was admitted to the med/surg unit. The patient had a consultation with Dr. Martinez on 02/25/2016. The patient had a PEG placement, the patient was tolerating G-tube feedings and was later then stabilized and stable for discharge. CONDITION UPON DISCHARGE: Fair. DISPOSITION: The patient is being discharged to [facility]____. [facility]# [id number]
== END 2016-02-26 17:20 | DRG 252 ==
LOC: ER 11:20 → MSI 12:54
PROVIDERS: ADMIT Internal Medicine; ATTEND Internal Medicine
PROC: 0D20XUZ Change Feeding Device in Upper Intestinal Tract, External Approach (ICD-10-PCS; principal; 2016-02-25)
DX: K94.23 Gastrostomy malfunction (principal); R53.2 Functional quadriplegia; F03.90 Unspecified dementia, unspecified severity, without behavioral disturbance, psychotic disturbance, mood disturbance, and anxiety; R13.10 Dysphagia, unspecified; F25.9 Schizoaffective disorder, unspecified; I10 Essential (primary) hypertension; D64.9 Anemia, unspecified; E11.9 Type 2 diabetes mellitus without complications; J44.9 Chronic obstructive pulmonary disease, unspecified; E86.0 Dehydration; E03.9 Hypothyroidism, unspecified; G40.909 Epilepsy, unspecified, not intractable, without status epilepticus; Y83.3 Surgical operation with formation of external stoma as the cause of abnormal reaction of the patient, or of later complication, without mention of misadventure at the time of the procedure; Y92.89 Other specified places as the place of occurrence of the external cause; Z88.8 Allergy status to other drugs, medicaments and biological substances; Z86.73 Personal history of transient ischemic attack (TIA), and cerebral infarction without residual deficits
CPT/HCPCS: 36415-UA; 71010-TC; 80048-TC; 80053-TC; 82140-TC; 82607-90; 82746-90; 84484-TC; 85007-TC; 85025-TC; 85027-TC; 85610-TC; 85730-TC; 94760; C1751; J7040; Z7610